=== PATIENT | female | born 1970 | race Two or more races ===

== ENCOUNTER 2019-10-19 23:47 | Emergency (ER) | payer SELFPAY ==
[~2019-10-19] VITALS: Ht 160 cm; Wt 145.1 kg
[2019-10-20] MEDS ORDERED: IV NORMAL SALINE 1000ML BAG 1,000 ML IV SCH (00:45)
--- NOTE | 2019-10-20 00:48 | PHYS DOC ---
Past Medical History Past Medical History: Anemia, Asthma, Diabetes-Type II, High Cholesterol Additional Past Medical Histor: HERNIA, CHRONIC BACK PAIN, FIBROIDS Past Surgical History: Additional Past Surgical Histo: HERNIA REPAIR Alcohol Use: None Drug Use: None Adult General Chief Complaint Chief Complaint: ABDOMINAL PAIN [facility] HPI 49-year-old female presents to the emergency department with complaints of abdominal pain patient states pain is been ongoing 2 weeks however worse today, described as a cramping sensation. She denies any diarrhea however has had n ausea, vomiting, chills. Sometimes it's difficult to urinate however she was able urinate here in the emergency department. She has a history of diabetes, hypertension, asthma, hyperlipidemia, anemia. Nothing makes her pain better, nothing makes her pain worse. She denies any fever Review of Systems Review of Systems Constitutional: + chills Respiratory: Denies cough or shortness of breath [] Cardiovascular: No additional information not addressed in HPI [] GI: + abdominal pain, nausea, vomiting, no bloody stools or diarrhea [] : urgency Musculoskeletal: low back pain radiates to the front Integument: Denies rash or skin lesions [] Neurologic: Denies headache, focal weakness or sensory changes [] All other systems were reviewed and found to be within normal limits, except as documented in this note. Current Medications Current Medications Current Medications Medications (Trade) Dose Ordered Sig/Ron Start Time Stop Time Status Last Admin Dose Admin Info (CONTRAST GIVEN -- Rx MONITORING) 1 each PRN DAILY PRN 10/20/19 02:15 10/22/19 02:14 Iohexol (Omnipaque 300 Mg/ml) 75 ml 1X ONCE 10/20/19 02:15 10/20/19 02:16 DC 10/20/19 02:10 75 ML Ketorolac Tromethamine (Toradol 30mg Vial) 30 mg 1X ONCE 10/20/19 01:00 10/20/19 01:01 DC 10/20/19 01:21 30 MG Morphine Sulfate (Morphine Sulfate) 4 mg 1X ONCE 10/20/19 01:00 10/20/19 01:01 DC 10/20/19 01:22 4 MG Ondansetron HCl (Zofran) 4 mg 1X ONCE 10/20/19 01:00 10/20/19 01:01 DC 10/20/19 01:21 4 MG Sodium Chloride 1,000 ml @ 1,000 mls/hr Q1H 10/20/19 00:45 10/20/19 01:44 DC 10/20/19 01:21 1,000 MLS/HR Allergies Allergies Allergies Coded Allergies Type Severity Reaction Last Updated Verified No Known Drug Allergies 10/20/19 No Physical Exam Physical Exam Constitutional: Well developed, well nourished, distress 2/2 pain, non-toxic appearance. [] HENT: Normocephalic, atraumatic, bilateral external ears normal, oropharynx moist, no oral exudates, nose normal. [] Eyes: PERRLA, EOMI, conjunctiva normal, no discharge. [] Cardiovascular:Heart rate regular rhythm, no murmur [] Lungs & Thorax: Bilateral breath sounds clear to auscultation [] Abdomen: Bowel sounds normal, soft, TTP lower abdomen, no masses, no pulsatile masses. [] Skin: Warm, dry, no erythema, no rash. [] Back: No tenderness, no CVA tenderness. [] Extremities: No tenderness, no edema. [] Neurologic: Alert and oriented X 3, no focal deficits noted. [] Psychologic: Affect normal, judgement normal, mood normal. [] Current Patient Data Vital Signs Vital Signs Date Time Temp Pulse Resp B/P (MAP) Pulse Ox O2 Delivery O2 Flow Rate FiO2 10/20/19 01:22 Room Air 10/20/19 00:24 94 24 117/77 (90) 97 Lab Values Laboratory Tests Test 10/19/19 23:55 10/20/19 00:10 10/20/19 01:10 Urine Collection Type Unknown Urine Color Yellow Urine Clarity Clear Urine pH 6.0 Urine Specific Wilbur 1.015 Urine Protein Negative mg/dL (NEG-TRACE) Urine Glucose (UA) Negative mg/dL (NEG) Urine Ketones (Stick) Negative mg/dL (NEG) Urine Blood Negative (NEG) Urine Nitrite Negative (NEG) Urine Bilirubin Negative (NEG) Urine Urobilinogen Dipstick 0.2 mg/dL (0.2 mg/dL) Urine Leukocyte Esterase Negative (NEG) Urine RBC 0 /HPF (0-2) Urine WBC 1-4 /HPF (0-4) Urine Squamous Epithelial Cells Many /LPF Urine Bacteria Few /HPF (0-FEW) Urine Mucus Slight /LPF POC Urine HCG, Qualitative Hcg negative (Negative) White Blood Count 9.6 x10^3/uL (4.0-11.0) Red Blood Count 4.69 x10^6/uL (3.50-5.40) Hemoglobin 12.6 g/dL (12.0-15.5) Hematocrit 37.6 % (36.0-47.0) Mean Corpuscular Volume 80 fL (79-100) Mean Corpuscular Hemoglobin 27 pg (25-35) Mean Corpuscular Hemoglobin Concent 34 g/dL (31-37) Red Cell Distribution Width 14.7 % (11.5-14.5) H Platelet Count 313 x10^3/uL (140-400) Neutrophils (%) (Auto) 68 % (31-73) Lymphocytes (%) (Auto) 22 % (24-48) L Monocytes (%) (Auto) 6 % (0-9) Eosinophils (%) (Auto) 3 % (0-3) Basophils (%) (Auto) 1 % (0-3) Neutrophils # (Auto) 6.5 x10^3/uL (1.8-7.7) Lymphocytes # (Auto) 2.1 x10^3/uL (1.0-4.8) Monocytes # (Auto) 0.6 x10^3/uL (0.0-1.1) Eosinophils # (Auto) 0.3 x10^3/uL (0.0-0.7) Basophils # (Auto) 0.1 x10^3/uL (0.0-0.2) Sodium Level 136 mmol/L (136-145) Potassium Level 3.8 mmol/L (3.5-5.1) Chloride Level 99 mmol/L (98-107) Carbon Dioxide Level 28 mmol/L (21-32) Anion Gap 9 (6-14) Blood Urea Nitrogen 15 mg/dL (7-20) Creatinine 0.7 mg/dL (0.6-1.0) Estimated GFR (Cockcroft-Gault) 88.9 BUN/Creatinine Ratio 21 (6-20) H Glucose Level 125 mg/dL (70-99) H Lactic Acid Level 2.1 mmol/L (0.4-2.0) H Calcium Level 9.9 mg/dL (8.5-10.1) Total Bilirubin 0.2 mg/dL (0.2-1.0) Aspartate Amino Transferase (AST) 20 U/L (15-37) Alanine Aminotransferase (ALT) 33 U/L (14-59) Alkaline Phosphatase 113 U/L (46-116) Total Protein 7.5 g/dL (6.4-8.2) Albumin 3.4 g/dL (3.4-5.0) Albumin/Globulin Ratio 0.8 (1.0-1.7) L Laboratory Tests 10/20/19 01:10 Laboratory Tests 10/20/19 01:10 EKG EKG [] Radiology/Procedures Radiology/Procedures [facility] [address] [place], [place] [id number] IMAGING REPORT Signed PATIENT: SETH CLARK ACCOUNT: [id number] : 1970 LOCATION: ER AGE: 49 SEX: F EXAM STATUS: REG ER ORD. PHYSICIAN: LUKE RUSS MD REASON: abdominal pain, lower abdomen PROCEDURE: CT ABD PELV W/ IV CONTRST ONLY CT abdomen and pelvis with contrast PQRS statement: CT scans at this facility use dose reduction including either automated exposure control, iterative reconstructions, and /or weight based radiation dosing via mA and kV modification when appropriate to reduce radiation dose to as low as reasonably achievable. HISTORY: Abdominal pain. Lower abdominal pain. Contrast: 75 mL Omnipaque 300 intravenous contrast. Abdomen findings: Calcified granuloma right lower lobe. Hypodense liver may be fatty. Gallbladder, pancreas, spleen, adrenal glands and kidneys are unremarkable. 3 cm duodenal diverticulum protrudes into the head of the pancreas. Sigmoid diverticulosis with mild groundglass edema adjacent. Appendix is negative. No obstruction or inflammation the GI tract. No abdominal fluid or adenopathy. Pelvis findings: Right ovarian 3 cm indeterminate hypodensity internal density 50 units. Uterus is enlarged and globular could be due to ill-defined leiomyomas at the fundus. There is abnormal enlargement of the cervix and hypoattenuation of the endocervix and right cervical stroma raising the possibility of a mass, versus a cervical fluid collection. Left ovary, bladder, rectum and bones are unremarkable. Calcified granuloma deep to the lower abdominal wall. There is a 3 cm fatty umbilical abdominal wall hernia. IMPRESSION: 1. Abnormal enlargement of the cervix associated with endocervical and right cervical stromal hypodensity. This could represent cervical malignancy. Cervicitis with an intracervical large cyst, or fluid from abscess are also possibilities. 2. Globular enlarged uterus most likely due to leiomyomas. 3 cm dense lesion of the right ovary could represent hemorrhagic cyst or solid lesion. Mass lesions could be further assessed with sonography. 3. Subtle groundglass density of the sigmoid colon and diverticuli could indicate low-grade diverticulitis. 4. 3 cm fatty umbilical abdominal wall hernia. 5. The appendix is negative. Electronically signed by: Karrie Mak MD (10/20/2019 2:28 AM) [id number] DICTATED and SIGNED BY: KARRIE MAK MD DATE: 10/20/198 [] Course & Med Decision Making Course & Med Decision Making Pertinent Labs and Imaging studies reviewed. (See chart for details) []49-year-old female presents to the emergency department with complaints of abdominal pain patient states pain is been ongoing 2 weeks however worse today, described as a cramping sensation. She denies any diarrhea however has had nausea, vomiting, chills. Sometimes it's difficult to urinate however she was able urinate here in the emergency department. She has a history of diabetes, hypertension, asthma, hyperlipidemia, anemia. Nothing makes her pain better, nothing makes her pain worse. She denies any fever. Labs reviewed Lactic acidosis, no evidence of SIRS criteria on exam CT reviewed Discussed findings with patient and family at bedside Recommend ROOM ATTENDANT follow up as outpatient Rx provided for Augmentin BID x 7 days Bentyl as needed for abd pain. Dragon Disclaimer Dragon Disclaimer This electronic medical record was generated, in whole or in part, using a voice recognition dictation system. Departure Departure Impression: Primary Impression: Diverticulitis Additional Impression: Abnormal CT scan, pelvis Disposition: HOME, SELF-CARE Condition: IMPROVED Referrals: NO PCP (PCP) TIANNA CHATMAN Jr, MD Patient Instructions: Diverticulitis, [id number] Additional Instructions: Recommend follow up with PCP 3 - 5 days Return to the ER with worsening symptoms, intractable pain, fever, altered mental status Tylenol/Motrin as needed for pain Take antibiotics as directed Bentyl as directed CT with evidence of diverticulitis, abnormal findings along cervix - recommend ROOM ATTENDANT follow up as outpatient Scripts Amoxicillin/Potassium Clav (AUGMENTIN 875-125 TABLET) 1 Each Tablet 1 TAB PO Q12HR, #14 TAB Prov: LUKE RUSS MD 10/20/19 Dicyclomine Hcl (DICYCLOMINE HCL) 10 Mg Capsule 1 CAP PO PRN Q6HRS for 5 Days, #20 CAP 3 Refills Prov: LUKE RUSS MD 10/20/19 Problem Qualifiers LUKE RUSS MD Oct 20, 2019 00:48
[2019-10-20 00:50] LABS: BILIRUBIN,URINE NEGATIVE (NEG); CLARITY,URINE CLEAR; COLOR,URINE YELLOW; NITRITE,URINE NEGATIVE (NEG); PROTEIN,URINE NEGATIVE (NEG-TRACE); UROBILINOGEN,URINE 0.2 mg/dL (0.2 mg/dL)
[2019-10-20 00:58] LABS: SQUAMOUS EPITHELIAL CELL,UR MANY /LPF
[2019-10-20 00:59] LABS: BACTERIA,URINE FEW /HPF (0-FEW); RBC,URINE 0 /HPF (0-2)
[2019-10-20] MEDS ORDERED: ONDANSETRON PF 4 MG/2 ML VIAL. IV ONE (01:00)
[2019-10-20] MEDS ORDERED: KETOROLAC 30 MG/ML VIAL. IV ONE (01:00)
[2019-10-20] MEDS ORDERED: MORPHINE SULFATE 4 MG/ML VIAL. IV ONE (01:00)
[2019-10-20 01:23] LABS: BASO # 0.1 x10^3/uL (0.0-0.2); BASO % 1 % (0-3); EOS # 0.3 x10^3/uL (0.0-0.7); EOS % 3 % (0-3); HEMATOCRIT 37.6 % (36.0-47.0); HEMOGLOBIN 12.6 g/dL (12.0-15.5); LYMPH # 2.1 x10^3/uL (1.0-4.8); LYMPH % 22 % (24-48); MEAN CORPUSCULAR HEMOGLOBIN 27 pg (25-35); MEAN CORPUSCULAR HGB CONC 34 g/dL (31-37); MEAN CORPUSCULAR VOLUME 80 fL (79-100); MONO # 0.6 x10^3/uL (0.0-1.1); MONO % 6 % (0-9); NEUT # 6.5 x10^3/uL (1.8-7.7); NEUT % 68 % (31-73); PLATELET COUNT 313 x10^3/uL (140-400); RED BLOOD COUNT 4.69 x10^6/uL (3.50-5.40); RED CELL DISTRIBUTION WIDTH 14.7 % (11.5-14.5); WHITE BLOOD COUNT 9.6 x10^3/uL (4.0-11.0)
[2019-10-20 01:31] LABS: CALCIUM 9.9 mg/dL (8.5-10.1); CREATININE 0.7 mg/dL (0.6-1.0); GFR 88.9; POTASSIUM 3.8 mmol/L (3.5-5.1)
[2019-10-20 01:37] LABS: ALBUMIN 3.4 g/dL (3.4-5.0); ALBUMIN/GLOBULIN RATIO 0.8 (1.0-1.7); TOTAL BILIRUBIN 0.2 mg/dL (0.2-1.0); TOTAL PROTEIN 7.5 g/dL (6.4-8.2)
[2019-10-20] MEDS ORDERED: CONTRAST GIVEN. MC PRN (02:15)
[2019-10-20] MEDS ORDERED: IOHEXOL 300 MG/ML 100ML VIAL. IV ONE (02:15)
--- NOTE | 2019-10-20 02:31 | RAD ---
CT abdomen and pelvis with contrast PQRS statement: CT scans at this facility use dose reduction including either automated exposure control, iterative reconstructions, and /or weight based radiation dosing via mA and kV modification when appropriate to reduce radiation dose to as low as reasonably achievable. HISTORY: Abdominal pain. Lower abdominal pain. Contrast: 75 mL Omnipaque 300 intravenous contrast. Abdomen findings: Calcified granuloma right lower lobe. Hypodense liver may be fatty. Gallbladder, pancreas, spleen, adrenal glands and kidneys are unremarkable. 3 cm duodenal diverticulum protrudes into the head of the pancreas. Sigmoid diverticulosis with mild groundglass edema adjacent. Appendix is negative. No obstruction or inflammation the GI tract. No abdominal fluid or adenopathy. Pelvis findings: Right ovarian 3 cm indeterminate hypodensity internal density 50 units. Uterus is enlarged and globular could be due to ill-defined leiomyomas at the fundus. There is abnormal enlargement of the cervix and hypoattenuation of the endocervix and right cervical stroma raising the possibility of a mass, versus a cervical fluid collection. Left ovary, bladder, rectum and bones are unremarkable. Calcified granuloma deep to the lower abdominal wall. There is a 3 cm fatty umbilical abdominal wall hernia. IMPRESSION: 1. Abnormal enlargement of the cervix associated with endocervical and right cervical stromal hypodensity. This could represent cervical malignancy. Cervicitis with an intracervical large cyst, or fluid from abscess are also possibilities. 2. Globular enlarged uterus most likely due to leiomyomas. 3 cm dense lesion of the right ovary could represent hemorrhagic cyst or solid lesion. Mass lesions could be further assessed with sonography. 3. Subtle groundglass density of the sigmoid colon and diverticuli could indicate low-grade diverticulitis. 4. 3 cm fatty umbilical abdominal wall hernia. 5. The appendix is negative. Electronically signed by: Jamari Mak MD (10/20/2019 2:28 AM) [facility]
[2019-10-20] MEDS ORDERED: DICY10CA3 PO (02:45)
[2019-10-20] MEDS ORDERED: AMOX1TAB61 PO (02:45)
[2019-10-20 03:28] VITALS: BP 139/79
== END 2019-10-20 03:38 | disposition home or self-care (01) ==
LOC: ER 23:47
DX: K57.92 Diverticulitis of intestine, part unspecified, without perforation or abscess without bleeding (principal); R93.41 Abnormal radiologic findings on diagnostic imaging of renal pelvis, ureter, or bladder; R11.2 Nausea with vomiting, unspecified; R10.30 Lower abdominal pain, unspecified; M54.5 Low back pain; J45.909 Unspecified asthma, uncomplicated; E11.9 Type 2 diabetes mellitus without complications; E78.00 Pure hypercholesterolemia, unspecified; G89.29 Other chronic pain; Z98.890 Other specified postprocedural states
CPT/HCPCS: 36415; 74177; 80053; 81001; 81025; 83605; 85025; 96361; 96374; 96375; 99285; J1885; J2270; J2405; J7030; Q9967

== ENCOUNTER 2019-12-21 18:33 | Emergency (ER) | payer SELFPAY ==
[~2019-12-21] VITALS: Ht 160 cm; Wt 145.4 kg
[~2019-12-21 18:33] MED LIST: AMOX1TAB61 PO; DICY10CA3 PO
[2019-12-21] MEDS: predniSONE 10 MG TABLET PO ONE (20:00)
--- NOTE | 2019-12-21 20:05 | PHYS DOC ---
Past Medical History Past Medical History: Anemia, Asthma, Diabetes-Type II, High Cholesterol Additional Past Medical Histor: HERNIA, CHRONIC BACK PAIN, FIBROIDS (MINA KELLY APRN) Past Surgical History: Additional Past Surgical Histo: HERNIA REPAIR (MINA KELLY APRN) Smoking Status: Never Smoker Alcohol Use: None Drug Use: None (MINA KELLY APRN) Attending Signature I have participated in the care of this patient and I have reviewed and agree with all pertinent clinical information above including history, exam, and rec ommendations. (LUKE RUSS MD) Adult General Chief Complaint Chief Complaint: COUGH HPI HPI Patient is a 49 year old female who presents with cough, body aches, headache, fever 3 days. Patient traveled to [place] one week ago. Patient has a history of asthma and states she is out of her albuterol inhaler. She is having chest tightness and a dry cough. Patient's been taking TheraFlu and NyQuil. (MINA KELLY APRN) Review of Systems Review of Systems Constitutional: fever or chills [] HENT: nasal congestion or sore throat [] Respiratory: cough or shortness of breath [] All other systems were reviewed and found to be within normal limits, except as documented in this note. (MINA KELLY APRN) Current Medications Current Medications Current Medications Medications (Trade) Dose Ordered Sig/Ron Start Time Stop Time Status Last Admin Dose Admin Albuterol Sulfate (Ventolin Neb Soln) 2.5 mg 1X ONCE 12/21/19 20:00 12/21/19 20:01 DC 12/21/19 21:16 2.5 MG Prednisone (Prednisone) 50 mg 1X ONCE 12/21/19 20:00 12/21/19 20:01 DC 12/21/19 20:00 50 MG (LUKE RUSS MD) Allergies Allergies Allergies Coded Allergies Type Severity Reaction Last Updated Verified No Known Drug Allergies 10/20/19 No (LUKE RUSS MD) Physical Exam Physical Exam Constitutional: Well developed, well nourished, no acute distress, non-toxic appearance. [] HENT: Normocephalic, atraumatic, bilateral external ears normal, oropharynx moist, no oral exudates, nose normal. Nasal congestion.[] Eyes: PERRLA, EOMI, conjunctiva normal, no discharge. [] Neck: Normal range of motion, no tenderness, supple, no stridor. [] Cardiovascular:Heart rate regular rhythm, no murmur [] Lungs & Thorax: Bilateral upper breath sounds inspiratory wheezes and bases diminished. to auscultation [] Abdomen: Bowel sounds normal, soft, no tenderness, no masses, no pulsatile masses. [] Skin: Warm, dry, no erythema, no rash. [] Back: No tenderness, no CVA tenderness. [] Extremities: No tenderness, no cyanosis, no clubbing, ROM intact, no edema. [] Neurologic: Alert and oriented X 3, normal motor function, normal sensory function, no focal deficits noted. [] Psychologic: Affect normal, judgement normal, mood normal. [] (MINA KELLY APRN) Current Patient Data Vital Signs Vital Signs Date Time Temp Pulse Resp B/P (MAP) Pulse Ox O2 Delivery O2 Flow Rate FiO2 12/21/19 21:14 97 Room Air 12/21/19 20:17 98.4 97 16 147/108 (121) 98.4 (LUKE RUSS MD) Lab Values Laboratory Tests Test 12/21/19 20:38 Influenza Type A Antigen Negative (NEGATIVE) Influenza Type B Antigen Negative (NEGATIVE) (LUKE RUSS MD) EKG EKG [] (MINA KELLY APRN) Radiology/Procedures Radiology/Procedures [] (MINA KELLY APRN) Impressions: [facility] [address] [place], [place] [id number] IMAGING REPORT Signed PATIENT: SETH HERNANDEZ DACCOUNT: [id number] : 1970 LOCATION: ER AGE: 49 SEX: F EXAM STATUS: REG ER ORD. PHYSICIAN: MINA KELLY APRN REASON: cough PROCEDURE: CHEST PA & LATERAL EXAM: PA and Lateral Views of the Chest DATE: 12/21/2019 8:00 PM INDICATION: Cough COMPARISON: No Prior FINDINGS: The heart is not enlarged. Prominence of the AP window may be seen with AP window mass or lymph node. Bibasilar airspace opacities, left greater than right may represent atelectasis or developing consolidative process. No pleural effusion or pneumothorax. IMPRESSION: 1. Bibasilar airspace opacities, left greater than right may represent atelectasis or developing consolidative process. 2. AP window prominence may represent underlying lymph node or mass. This can be further assessed by CT or comparison to recent priors if available. Electronically signed by: Marc Toledo MD (12/21/2019 8:20 PM) [id number] DICTATED and SIGNED BY: MARC TOLEDO MD DATE: 12/21/192019 (MINA KELLY APRN) Course & Med Decision Making Course & Med Decision Making Pertinent Labs and Imaging studies reviewed. (See chart for details) Lungs have inspiratory wheezes in bilateral upper lobes and lower lobes are diminished. Alert and oriented. Speaks in full clear sentences. Ambulatory steady gait. Skin pink warm and dry. Mucous are membranes moist. Patient denies chest pain, dizziness, visual changes, numbness or tingling or focal weakness, PERRLA. Vital signs are stable. Patient is given prednisone and an albuterol treatment in the ED. IMPRESSION: 1. Bibasilar airspace opacities, left greater than right may represent atelectasis or developing consolidative process. 2. AP window prominence may represent underlying lymph node or mass. This can be further assessed by CT or comparison to recent priors if available. [] (MINA KELLY APRN) Dragon Disclaimer Dragon Disclaimer This electronic medical record was generated, in whole or in part, using a voice recognition dictation system. (MINA KELLY APRN) Departure Departure Impression: Primary Impression: Cough Disposition: 01 HOME, SELF-CARE Condition: STABLE Referrals: NO PCP (PCP) Patient Instructions: Cough, Adult, Pneumonia, Adult Additional Instructions: With the current outbreak of akhtar virus and your current flu like symptoms you should quarantine yourself for 14 days away from others. Drink plenty of fluids and take medications as prescribed. Scripts Albuterol Sulfate (Proair Hfa) 8.5 Gm Hfa.aer.ad 1 PUFF INH PRN Q6HRS PRN for SHORTNESS OF BREATH, #1 INHALER Prov: MINA KELLY APRN 12/21/19 Methylprednisolone (MEDROL) 4 Mg Tab.ds.pk 1 PKG PO UD, #1 PKG Prov: MINA KELLY APRN 12/21/19 Azithromycin (AZITHROMYCIN TABLET) 250 Mg Tablet 1 PKG PO UD for 5 Days, #6 TAB 0 Refills 2 the first day followed by 1 for days 2-5 Prov: MINA KELLY APRN 12/21/19 MINA KELLY APRN Dec 21, 2019 20:05 LUKE RUSS MD Dec 22, 2019 03:06
[2019-12-21 20:17] VITALS: BP 147/108
--- NOTE | 2019-12-21 20:23 | RAD ---
EXAM: PA and Lateral Views of the Chest DATE: 12/21/2019 8:00 PM INDICATION: Cough COMPARISON: No Prior FINDINGS: The heart is not enlarged. Prominence of the AP window may be seen with AP window mass or lymph node. Bibasilar airspace opacities, left greater than right may represent atelectasis or developing consolidative process. No pleural effusion or pneumothorax. IMPRESSION: 1. Bibasilar airspace opacities, left greater than right may represent atelectasis or developing consolidative process. 2. AP window prominence may represent underlying lymph node or mass. This can be further assessed by CT or comparison to recent priors if available. Electronically signed by: Marc Adkins MD (12/21/2019 8:20 PM) [id number]
[2019-12-21] MEDS ORDERED: AZIT250T6 PO (20:42)
[2019-12-21] MEDS ORDERED: METH4TAB2 PO (20:42)
[2019-12-21] MEDS ORDERED: ALBU2.5V8 INH (20:42)
[2019-12-21 20:59] LABS: INFLUENZA A PATIENT NEGATIVE (NEGATIVE); INFLUENZA B PATIENT NEGATIVE (NEGATIVE)
[2019-12-21] MEDS: ALBUTEROL SULFATE 2.5 MG/3 ML NEBU. NEB ONE (21:16)
== END 2019-12-21 21:23 | disposition home or self-care (01) ==
LOC: ER 18:33
DX: R50.9 Fever, unspecified (principal); R05 Cough; R51 Headache; J45.909 Unspecified asthma, uncomplicated; E11.9 Type 2 diabetes mellitus without complications; E78.00 Pure hypercholesterolemia, unspecified; G89.29 Other chronic pain; Z98.890 Other specified postprocedural states
CPT/HCPCS: 71046; 87804; 94640; 99284; J7512; J7613